=== PATIENT | male | born 1970 | race Caucasian/White ===

== ENCOUNTER 2024-04-03 01:43 | Emergency (ER) | payer OTHER, SELFPAY ==
[2024-04-03 01:47] VITALS: BP 182/105
--- NOTE | 2024-04-03 02:02 | EDRN ---
triage done by this RN, not Charlene Kumari RN
--- NOTE | 2024-04-03 02:09 | ED.GENMED ---
History of Present Illness
General
Chief Complaint: Anxiety
Source: patient
Exam Limitations: none
Time Seen by Provider: 04/03/24 02:02
History of Present Illness
History of Present Illness:
This is a 53 year old male that comes in with c/o anxiety. Patient states that he found his pat and that she killed herself. States that she shot herself and he found her. States that the police told him to come see crisis. states that he
can't calm down and that his heart it racing. Denies any fever, chills, chest pain, SOB, abd pain, nausea, vomiting, diarrhea, headache, dizzziness.
Past History
Past History
ED Past Medical History: Other (Renal calculus); Negative Asthma, HTN or Hypercholesterolemia
ED Past Surgical History: None
Social History
Tobacco: Non-smoker
Alcohol: None
Drug: None
Personal:
Living: with family
Employment: Employed ([employer])
Review of Systems
Review of Systems
All Other Systems: ROS reviewed and negative except as documented in HPI and ROS
Constitutional: Reports no symptoms; Denies fever or chills
EENT: Reports no symptoms
Respiratory: Reports no symptoms; Denies cough or trouble breathing
Cardiac: Reports other (Feels his heart racing)
ABD/GI: Reports no symptoms; Denies abdominal pain, nausea, vomiting or diarrhea
: Reports no symptoms
Musculoskeletal: Reports no symptoms
Skin: Reports no symptoms
Neurological: Denies dizzy or headache
Psychiatric: Reports anxiety
Phy Exam
General Physical Exam
General Presentation: no apparent distress
General age: appears stated age
General Skin: warm and dry
General Habitus: normal
General Mental: alert and anxious
General Hydration: dry mucous membranes
ENT Exam
ENT Exam: TM's normal, pharynx normal and neck supple
Eye Exam
Eye Exam: EOMI
Cardiovascular Exam
Cardiovascular Exam: regular rate/rhythm, no edema, no murmur and normal peripheral pulses
Pulmonary Exam
Pulmonary Exam: lungs clear, no respiratory distress, no rales, chest non tender, no crackles, no rhonchi, no wheezing and no cough
Musculoskeletal Exam
Musculoskeletal Exam: full ROM and no edema
Skin Exam
Skin Exam: normal color, warm/dry, no rash and no petechia
Psychiatric Exam
Psychiatric Exam: anxious (Holding in the tears)
Course
Orders/Labs/Results
Orders:
Orders
04/03/24 02:03
Crisis Consult Urgent
Reason for Consult: anxiety, grief counseling,
Comment: commitied suicide tonight
04/03/24 02:08
Lorazepam [Ativan] 1 mg PO NOW STA
Vital Signs
Initial and Last Documented VS:
Initial Vital Signs
Temp Pulse Resp BP Pulse Ox
98.2 F 131 18 182/105 95
04/03/24 01:47 04/03/24 01:47 04/03/24 01:47 04/03/24 01:47 04/03/24 01:47
Last Documented Vital Signs
Temp Pulse Resp BP Pulse Ox
98.2 F 131 18 182/105 95
04/03/24 01:47 04/03/24 01:47 04/03/24 01:47 04/03/24 01:47 04/03/24 01:47
MDM/Problems Addressed
Differential Diagnosis Includes:
Anxiety, Grieving
MDM/Problems Addressed:
This is a 53 year old male that comes in with c/o anxiety. States that his committed suicide tonight and he found her. States that she shoot herself. States that he feels like his heart is racing and he can't calm down.
Will medicated with Ativan and have Crisis see patient.
patient was seen by Crisis and given out patient information for Grief counseling. Will also give patient a prescription for Ativan to get him through the next few days. Patient will try sleeping here until morning. Patient to return with any
concerns.
Chronic conditions affecting care:
NA
Acute Exacerbation and/or Progression of Chronic Illness:
NA
*Pulse Oximetry
Patient hypoxic: no
*EKG
Interpreted by ED Provider?: NA
Rate: EKG- N/A
*Payment Analyst Interpretation
Rate: Payment Analyst- N/A
*Critical Care Note
Total Time (30-74mins, 75-104mins- exclusive of procedures): Not Applicable
ED Attending Note
-
Portions of this chart may have been created with voice recognition software.� Occasional wrong word or��sound alike� substitutions may have occurred due to the inherent limitations of voice recognition software.
Discharge Plan
Departure
Patient Disposition: Home (Routine Discharge)
Date of Disposition: 04/03/24
Time of Disposition: 02:52
Patient with high blood pressure during this ER visit?: Yes
Condition: Good
Covid-19: Not Applicable
Discharge Problem:
Grief reaction
Instructions: Dealing With , Adult, BLOOD PRESSURE
Prescriptions:
New
lorazepam [Ativan] 1 mg tablet
1 mg PO TID PRN (Reason: anxiety) Qty: 15 0RF
No Action
tamsulosin [Flomax] 0.4 mg capsule
0.4 mg PO DAILY Qty: 7 0RF
oxycodone-acetaminophen [Percocet] 5-325 mg tablet
1 tab PO Q4HPRN PRN (Reason: pain) Qty: 10 0RF
ondansetron 4 mg tablet,disintegrating
4 mg PO Q8HPRN PRN (Reason: nausea and vomiting) Qty: 10 0RF
oxycodone-acetaminophen [Percocet] 5-325 mg tablet
1 tab PO Q6HPRN PRN (Reason: pain) Qty: 10 0RF
Referrals:
NONE,* [Family Provider] -
Activity Restrictions/Additional Instructions:
As discussed, a prescription for Ativan has been sent to your Pharmacy. Please follow up as directed by Crisis. Follow up with your family doctor for recheck. IF YOU HAVE ANY OTHER CONCERNS PLEASE RETURN TO THE EMERGENCY ROOM.
Interventions
Interventions:
*General Assessment Last Done: 04/03/24 01:50
Discharge Date and Time
Print Language: THAI
[2024-04-03] MEDS: ATIVAN 1 MG PO ×2 (02:13→03:16)
--- NOTE | 2024-04-03 03:28 | EDRN ---
Crisis at bedside speaking with patient, gave more medicine to patient as well.
== END 2024-04-03 05:16 | disposition home or self-care (01) ==
LOC: EMR 01:43
PROVIDERS: EMERGENCY PHYSICIAN Emergency Medicine
DX: F43.22 Adjustment disorder with anxiety (principal); Z63.4 Disappearance and death of family member
CPT/HCPCS: 99283

== ENCOUNTER 2024-12-31 18:25 | Emergency (ER) | payer OTHER, SELFPAY ==
[2024-12-31 18:28] VITALS: BP 147/91
--- NOTE | 2024-12-31 22:02 | ED.GENMED ---
Addendum entered and electronically signed by Stephen Do PA-C 01/01/25 10:46:
Test show positive chlamydia result but negative for Neisseria gonorrhea. Spoke with patient change antibiotic to doxycycline. Called this into his pharmacy. Recommended he let his partner or partners know
Original Note:
History of Present Illness
General
Chief Complaint: Male Genito-Urinary Symptoms
Source: patient
Time Seen by Provider: 12/31/24 21:52
History of Present Illness
History of Present Illness:
54-year-old male with no significant past medical history presents to the ER for evaluation of 1 week of right sided testicular pain and swelling, somewhat worse today prompting him to come to the ER. Patient also notes he noted a little bit of
discoloration to the semen but states no blood in the urine or semen. He denies any urinary symptoms including urinary frequency/urgency/dysuria. Patient is sexually active with 1 partner stating no concern for STI. He denies any fevers, chills,
rigors.
Past History
Past History
ED Past Medical History: Other (Renal calculus); Negative Asthma, HTN or Hypercholesterolemia
ED Past Surgical History: None
Social History
Tobacco: Non-smoker
Alcohol: None
Drug: None
Personal:
Living: with family
Employment: Employed ([employer])
Review of Systems
Review of Systems
All Other Systems: ROS reviewed and negative except as documented in HPI and ROS
Phy Exam
Physical Exam
Physical Exam:
GENERAL: Alert , in no apparent distress
EYE: conjunctiva clear
Head: Normocephalic atraumatic
NECK: Supple,
ENT: mmm.
LUNGS: no acute respiratory distress
GENITOURINARY: Mild to moderate edema of the right testicle/epididymis with tenderness in this area, positive Prehn's sign. There is no surrounding lesions, sores or masses, no hernia, no urethral discharge
NEUROLOGICAL: Alert and oriented
SKIN: Warm and dry, skin intact.
MUSCULOSKELETAL: well perfused.
PSYCH: Normal and appropriate interaction.
Scores
Heart Failure Risk
Heart Failure Risk Score: Not Applicable
Heart Score for Chest Pain Patients
STEMI patient?: Not applicable
Withdrawal Assessment of Alcohol
Withdrawal Assessment Completed?: Not applicable
Course
Orders/Labs/Results
Orders:
Orders
12/31/24 18:32
US Scrotum Urgent
Comment:
Reason For Exam: R testicular pain/swelling
12/31/24 22:03
Ciprofloxacin HCl [Cipro] 500 mg PO NOW STA
12/31/24 22:27
Urinalysis Reflex To Culture Urgent
Date Specimen was Collected: 12/31/24
Time Specimen was Collected: 22:14
Urine Microscopic Reflex Cult Urgent
Chlamydia/GC by PCR Urgent
LIYA Source: Urine
Specimen Description:
Source:: URINE
Date Specimen was Collected: 12/31/24
Time Specimen was Collected: 22:14
Urine Culture Urgent
LIYA Source: U
Specimen Description:
Date Specimen was Collected: 12/31/24
Time Specimen was Collected: 22:14
Abnormal Lab Results
12/31/24
22:27
Ur Occult Blood Reflex 1+ A
(Negative)
Urine Urobilinogen 2+ A
(Neg - 1+)
Leukocyte Esterase Rfl 1+ A
(Negative)
Urine RBC 3-6 A /HPF
(0-2)
Urine WBC (Reflex) 26-30 A /HPF
(0-5)
Urine Bacteria (Reflex) Few A
(Negative)
Vital Signs
Initial and Last Documented VS:
Initial Vital Signs
Temp Pulse Resp BP Pulse Ox
99.5 F 79 18 147/91 96
12/31/24 18:28 12/31/24 18:28 08/17/25 18:28 12/31/24 18:28 12/31/24 18:28
Last Documented Vital Signs
Temp Pulse Resp BP Pulse Ox
99.5 F 79 18 140/104 98
12/31/24 18:28 12/31/24 18:28 12/31/24 18:28 12/31/24 22:28 12/31/24 22:30
MDM/Problems Addressed
Differential Diagnosis Includes:
Epididymitis
Orchitis
UTI
Prostatitis
Cystitis
Hernia
Malignancy
MDM/Problems Addressed:
54-year-old male presenting the ER for evaluation of right testicular pain and edema x 1 week. Ultrasound of the testicle had been ordered from triage which shows right sided epididymitis. Patient notes he has no concern for STI. He was agreeable
to sending a GC/chlamydia and urinalysis. UA with 26-30 WBCs. Will cover with Cipro 500 mg twice daily x 1 week. Follow-up with primary care provider. Patient aware of return precautions.
*Radiology
Radiology exam reviewed: radiology read reviewed
*Pulse Oximetry
SaO2: 96
Oxygen Mode of Delivery: Room air
Patient hypoxic: no
*Critical Care Note
Total Time (30-74mins, 75-104mins- exclusive of procedures): Not Applicable
ED Attending Note
-
Portions of this chart may have been created with voice recognition software.� Occasional wrong word or��sound alike� substitutions may have occurred due to the inherent limitations of voice recognition software.
Discharge Plan
Departure
Patient Disposition: Home (Routine Discharge)
Date of Disposition: 12/31/24
Time of Disposition: 22:02
Patient with high blood pressure during this ER visit?: Yes
Discharge Problem:
Acute epididymitis
Instructions: Epididymitis and orchitis
Prescriptions:
New
ciprofloxacin HCl [Cipro] 500 mg tablet
500 mg PO BID Qty: 13 0RF
No Action
tamsulosin [Flomax] 0.4 mg capsule
0.4 mg PO DAILY Qty: 7 0RF
oxycodone-acetaminophen [Percocet] 5-325 mg tablet
1 tab PO Q4HPRN PRN (Reason: pain) Qty: 10 0RF
ondansetron 4 mg tablet,disintegrating
4 mg PO Q8HPRN PRN (Reason: nausea and vomiting) Qty: 10 0RF
oxycodone-acetaminophen [Percocet] 5-325 mg tablet
1 tab PO Q6HPRN PRN (Reason: pain) Qty: 10 0RF
lorazepam [Ativan] 1 mg tablet
1 mg PO TID PRN (Reason: anxiety) Qty: 15 0RF
Interventions
Interventions:
*Risk Screen - Suicide Last Done: 12/31/24 18:28
*General Assessment Last Done: 12/31/24 18:28
*Neglect/Abuse Screening Last Done: 12/31/24 18:28
*ED- Fall Risk Assessment Last Done: 12/31/24 22:30
*ED COVID-19 Vaccine History Last Done: 12/31/24 18:28
*Nursing Disposition Last Done: 12/31/24 22:38
ED-Male Genitourinary Assessment Last Done: 12/31/24 22:30
Discharge Date and Time
Discharge Date/Time: 12/31/24 22:40
Print Language: SAMOAN
[2024-12-31] MEDS: CIPRO 500 MG PO (22:25)
[2024-12-31 22:28] VITALS: BP 140/104
[2024-12-31 22:29] VITALS: BMI 31.4
[2024-12-31 22:37] LABS: Urine Character Clear (Clear)
[2024-12-31 22:49] LABS: Urine Squamous Cell 0-2 /LPF (Few)
[2024-12-31 22:52] LABS: Urine White Cell 26-30 /HPF (0-5)
== END 2024-12-31 22:40 | disposition home or self-care (01) ==
LOC: EMR 18:25
PROVIDERS: Physician Assistant Medical; EMERGENCY PHYSICIAN Student in an Organized Health Care Education/Training Program
DX: N45.1 Epididymitis (principal); Z87.442 Personal history of urinary calculi
CPT/HCPCS: 99284; 76870; 81003; 81015; 87086; 87491; 87591; 93976